=== PATIENT | female | born 1965 | race Caucasian/White ===

== ENCOUNTER → 2018-02-03 | Outpatient (CLI) | payer OTHER | LOC: FIMAGING 11:20 | PROVIDERS: ATTEND Family Medicine | DX: R10.11 Right upper quadrant pain (principal) ==

== ENCOUNTER 2018-06-18 09:46 | Emergency (ER) | payer OTHER ==
[2018-06-18] MEDS ORDERED: ONDANSETRON 4 MG/2 ML VIAL IVP ONE (09:58)
--- NOTE | 2018-06-18 09:58 | EDPHY ---
General Time Seen by Provider: 06/18/18 09:53 Narrative: CHIEF COMPLAINT: Fall, back pain HISTORY OF PRESENT ILLNESS: Patient presents by private vehicle with spouse with complaints of fall and back pain. She states that she was walking out of her house down stairs, when she slipped and hit her back on the steps. She has severe pain in the midthoracic back. It is severe enough that she has difficulty moving and taking a deep breath. Minimal improvement rest. She has no numbness, tingling or weakness. She does have some shaking of her left hand with this. She has no head strike or loss of consciousness. No neck or lumbar back pain. No abdominal or chest pain. No other associated complaints or modifying factors. REVIEW OF SYSTEMS: 10 systems were reviewed and negative with the exception of the elements mentioned in the history of present illness. PAST MEDICAL HISTORY: Denies any medical history PAST SURGICAL HISTORY: No surgical history SOCIAL HISTORY: Nonsmoker. FAMILY HISTORY: Noncontributory EXAMINATION: Vitals: Triage VS reviewed General Appearance: Alert, no distress Head: normocephalic, atraumatic. No Jamison sign. No raccoon eyes. No depression or deformity. Eyes: Pupils equal and round, no conjunctival pallor or injection. EOM symmetric no nystagmus. Neck: Normal inspection, supple, non-tender Respiratory: Lungs are clear to auscultation Cardiovascular: Regular rate and rhythm. No murmur. Good signs of perfusion distally Gastrointestinal: Abdomen is soft and nontender Back: Midline tenderness and swelling the mid thoracic spine with no crepitus or deformity. No lumbar tenderness midline or paraspinous. Neurological: A&O, nonfocal, normal gait. Light sensory symmetric lower extremities. Strength is symmetric lower extremities. Patellar reflexes are 2 + symmetrically. Skin: Warm and dry, no rash. No petechiae, purpura, laceration or puncture. Extremities: Nontender, no pedal edema Psychiatric: Mood and affect normal DIFFERENTIAL DIAGNOSES: Including but not limited to thoracic fracture, sprain, strain, subluxation, spondylolisthesis, spondylosis MDM: 10:00 a.m. Reported mechanical fall just prior to arrival with midthoracic tenderness and mild swelling just left of midline. She is neuro intact distally. She does appear to be in discomfort in very anxious about this, thus I have ordered IV placement for pain control. There is no head strike or loss of conscious. No evidence of acute cord compression or cauda equina. I have ordered plain film of the thoracic spine, her only area of pain. No anticoagulants. No distress. 10:13 a.m. X-ray as read by me, without radiologist, reveals possible compression fracture with spondylolisthesis. Pending Radiology interpretation. 10:50 a.m. I reviewed the x-ray with Dr. Atkinson we agree that CT scan of the thoracic spine without contrast is indicated to further evaluate the injury. Patient is agreeable to this. 11:45 a.m. Notified by radiologist Dr. César Laboy. There is an acute compression fracture at T8. No retropulsion. No fracture of the adjacent vertebrae. 11:55 a.m. Case discussed with neurosurgeon Dr. Moreno. He agrees with our order of a [place] brace. He recommends follow-up in 2-3 weeks in his office. Routine medications as needed. Patient re-evaluated. I discussed the CT imaging, my discussion with Neurosurgery and the forthcoming brace placement. She is in no acute distress. Her pain is tolerable with no neuro complaints. 1:30 p.m. [employer] has arrived and provided her Chiquita brace. She is feeling better in the brace. We discussed discharge home with pain medication, anti- inflammatories and muscle relaxant as needed. We discussed follow up with Neurosurgery in 2-3 weeks. We discussed ED precautions. She is comfortable this plan. Discharged home stable condition. SUPERVISION: Patient was independently examined, but I discussed the case with my secondary supervising physician Dr. Atkinson CONSULTATION: Neurosurgery, Dr. Josh Lawrence prosthetics, Chiquita Brace placement - Diagnostics Imaging Results: Imaging Impressions Thoracic Spine X-Ray 06/18/18 09:59 Impression: Negative for definite acute fracture with degenerative changes noted. Thoracic Spine CT 06/18/18 10:49 Impression: Mild acute compression deformity of T8. There is no associated canal impingement. Results called and discussed with Rufino Recinos PA-C on June 18, 2018 at 1137 hours. - History Smoking Status: Never smoked - Objective Vital Signs: Initial Vital Signs Heart Rate 91 06/18/18 09:49 Respiratory Rate 18 06/18/18 09:49 Blood Pressure 107/74 06/18/18 09:49 O2 Sat (%) 98 06/18/18 09:49 O2 Delivery Mode Room Air Allergies/Adverse Reactions: gluten Allergy (Verified 06/18/18 09:51) latex Allergy (Verified 06/18/18 09:51) Penicillins Allergy (Verified 06/18/18 09:51) Home Medications: Medication Instructions Recorded Cyclobenzaprine [Flexeril 10 MG 10 mg PO TID PRN #20 tab 06/18/18 (*)] oxyCODONE HCL/ACETAMINOPHEN 1 each PO Q4-6PRN PRN #19 tablet 06/18/18 [Percocet 5-325 mg Tablet] Medications Given: Discontinued Medications Cyclobenzaprine HCl (Flexeril) 10 mg PO EDNOW ONE Stop: 06/18/18 11:52 Last Admin: 06/18/18 12:01 Dose: 10 mg Ibuprofen (Motrin) 600 mg PO EDNOW ONE Stop: 06/18/18 12:30 Last Admin: 06/18/18 12:57 Dose: 600 mg Morphine Sulfate (Morphine) 4 mg IVP EDNOW ONE Stop: 06/18/18 09:59 Last Admin: 06/18/18 10:12 Dose: 4 mg Morphine Sulfate (Morphine) 4 mg IVP EDNOW ONE Stop: 06/18/18 10:55 Last Admin: 06/18/18 11:01 Dose: 4 mg Ondansetron HCl (Zofran) 4 mg IVP EDNOW ONE Stop: 06/18/18 09:59 Last Admin: 06/18/18 10:13 Dose: 4 mg Departure - Departure Disposition: Home, Routine, Self-Care Clinical Impression: Thoracic compression fracture Qualifiers: Encounter type: initial encounter Fracture type: closed Qualified Code(s): S22.000A - Wedge compression fracture of unspecified thoracic vertebra, initial encounter for closed fracture Fall Qualifiers: Encounter type: initial encounter Qualified Code(s): W19.XXXA - Unspecified fall, initial encounter Condition: Good Instructions: Thoracolumbar Fracture (ED), Thoracic Pain (ED) Additional Instructions: 1. Fayette brace as discussed and demonstrated by cable television technician 2. Contact neurosurgeon for outpatient follow-up in 2-3 weeks 3. Medications as prescribed as needed for symptom control 4. ED precautions for worsening pain, numbness, tingling, weakness or inability to ambulate Referrals: Tod Moreno MD [Medical Doctor] - As per Instructions Prescriptions: Cyclobenzaprine [Flexeril 10 MG (*)] 10 mg PO TID PRN #20 tab PRN Reason: Spasms oxyCODONE HCL/ACETAMINOPHEN [Percocet 5-325 mg Tablet] 1 each PO Q4-6PRN PRN # 19 tablet PRN Reason: Pain, Breakthrough
[2018-06-18] MEDS ORDERED: CYCLOBENZAPRINE 10 MG TAB PO ONE (11:51)
[2018-06-18] MEDS ORDERED: IBUPROFEN 600 MG TAB PO ONE (12:29)
[2018-06-18 13:43] VITALS: BP 132/69
== END 2018-06-18 13:39 | disposition home or self-care (01) ==
DX: S22.000A Wedge compression fracture of unspecified thoracic vertebra, initial encounter for closed fracture (principal); W10.8XXA Fall (on) (from) other stairs and steps, initial encounter; Y92.018 Other place in single-family (private) house as the place of occurrence of the external cause; Y93.01 Activity, walking, marching and hiking
CPT/HCPCS: 96374; J2270; J2405

== ENCOUNTER → 2018-09-19 | Outpatient (CLI) | payer OTHER | LOC: BMCIMAGING 16:47 | PROVIDERS: ATTEND Family Medicine | DX: M79.642 Pain in left hand (principal) ==

== ENCOUNTER 2018-09-24 01:13 | Emergency (ER) | payer OTHER ==
--- NOTE | 2018-09-24 01:33 | EDPHY ---
H & P Stated Complaint: [facility] fall, LEFT wrist pain swelling. Time Seen by Provider: 09/24/18 01:33 HPI/ROS: HPI CHIEF COMPLAINT: MECHANICAL TRIP AND FALL, LEFT WRIST PAIN. HISTORY OF PRESENT ILLNESS: Patient very pleasant 53-year-old female she presents emergency room with left wrist pain. Patient states that she was going over a gate in her house and fell, landing on her left outstretched hand wrist. She now has distal left wrist pain and swelling. This happened 45 min ago. Denies any focal numbness or tingling. Denies any other areas of injury except left wrist. Past Medical History: Denies significant medical history Past Surgical History: Denies significant surgical history Social History: Denies drugs alcohol tobacco. Family History: Noncontributory ROS REVIEW OF SYSTEMS: 10 Systems were reviewed and negative with the exception of the elements mentioned in the history of present illness. Exam Constitutional triage nursing summary reviewed, vital signs reviewed, awake/ alert. Eyes normal conjunctivae and sclera, EOMI, PERRLA. HENT normal inspection, atraumatic, moist mucus membranes, no epistaxis, neck supple/ no meningismus, no raccoon eyes. Respiratory clear to auscultation bilaterally, normal breath sounds, no respiratory distress, no wheezing. Cardiovascular rate normal, regular rhythm, no murmur, no edema, distal pulses normal. Gastrointestinal soft, non-tender, no rebound, no guarding, normal bowel sounds, no distension, no pulsatile mass. Genitourinary no CVA tenderness. Musculoskeletal left wrist: Swelling noted over the distal radius and distal ulnar, good radial pulse, good cap refill, good financial sales associate strength, able to move all her fingers. Closed injury. Most focally tender over distal radius. no midline vertebral tenderness, full range of motion, no calf swelling, no tenderness of extremities, no meningismus, good pulses, neurovascularly intact. Skin pink, warm, & dry, no rash, skin atraumatic. Neurologic awake, alert and oriented x 3, AAOx3, moves all 4 extremities equally, motor intact, sensory intact, CN II-XII intact, normal cerebellar, normal vision, normal speech. Psychiatric normal mood/affect. Heme/Lymph/Immune no lymphadenopathy. Differential Diagnosis: Includes but is not limited to in a particular order wrist fracture, impacted fracture, ulnar fracture, radius fracture Medical Decision Making: Plan for this patient x-ray left wrist, ice pack, Brewster for pain and re-evaluate. Re-evaluation: X-ray left wrist reviewed. This shows a distal ulnar styloid fracture, additionally there is a distal radius fracture intra-articular. Patient be splinted in a sugar-tong splint. Patient need to follow up with Orthopedics On re-examination of the patient she is in her sugar-tong splint. Comfortable however the end of the splint is went will need to be redone. Additionally the patient states when she went over the case and fell on her outstretched left hand she straddle gait and fell on it. She complains of some right-sided suprapubic pain. I was able to examine her with Cristy HUYNH, as piling cutter. There is no perineal laceration no vaginal external laceration. No hematoma. No evidence of ecchymosis however patient does have some point tenderness over her right-sided suprapubic bone. Plan will be to check urinalysis for blood. Additionally check pelvic x-ray. If these are normal we talked about going home however, also she understands she develops worsening abdominal pain, pelvic pain, fever, vomiting she needs return emergency room she is comfortable this plan. Additionally compartment syndrome discussed about her wrist. Numbness or tingling severe pain, she understands return emergency room. Recommend anti-inflammatory pain medicine, ice, Splint for comfort. She needs follow-up with Orthopedics. Urinalysis reveals no blood. Pelvis x-ray shows no evidence of fracture. The patient has been splinted in a sugar-tong splint a 2nd time as the splint got wet. She is neurovascularly intact at 5:29 a.m.. She has good sensation good cap refill, good radial pulse. Sensation intact. No compartment syndrome. She feels comfortable in her splint. I did discussed return precautions with her she understands return emergency room she develops worsening wrist pain, arm pain, not doing well additionally she understands if she has worsening pelvis pain, abdominal pain, vomiting, not doing well she needs return emergency room. Watch for abdominal pain, blood in her urine, worsening pelvic pain. On exam with Cristy HUYNH as piling cutter there was no evidence of straddle injury or peroneal hematoma or laceration. She had focal tenderness over her right suprapubic bone. The x-ray has been reviewed by myself and I do not appreciate an fracture. Source: Patient - Personal History Current Tetanus/Diphtheria Vaccine: Yes Current Tetanus Diphtheria and Acellular Pertussis (TDAP): Yes - Medical/Surgical History Hx Asthma: No Hx Chronic Respiratory Disease: No Hx Diabetes: No Hx Cardiac Disease: No Hx Renal Disease: No Hx Cirrhosis: No Hx Alcoholism: No Other PMH: Denies - Social History Smoking Status: Never smoked Constitutional: Initial Vital Signs Temperature (C) 36.5 C 09/24/18 01:24 Heart Rate 91 09/24/18 01:24 Respiratory Rate 20 09/24/18 01:24 Blood Pressure 114/88 H 09/24/18 01:24 O2 Sat (%) 97 09/24/18 01:24 O2 Delivery Mode Room Air Allergies/Adverse Reactions: gluten Allergy (Verified 09/24/18 01:23) latex Allergy (Verified 09/24/18 01:23) Penicillins Allergy (Verified 09/24/18 01:23) Home Medications: Medication Instructions Recorded Calcium 09/24/18 Ibuprofen [Motrin (*)] 800 mg PO Q6-8PRN #10 tab 09/24/18 Potassium Citrate 09/24/18 Zinc 09/24/18 oxyCODONE/APAP 5/325 [Percocet 1 - 2 tab PO Q6H PRN #10 tab 09/24/18 5/325 (*)] Medical Decision Making - Data Points Laboratory Results: 09/24/18 04:30 Urine Color YELLOW Urine Appearance CLEAR Urine pH 5.0 (5.0-7.5) Ur Specific [place] 1.029 (1.002-1.030) Urine Protein NEGATIVE (NEGATIVE) Urine Ketones 1+ H (NEGATIVE) Urine Blood NEGATIVE (NEGATIVE) Urine Nitrate NEGATIVE (NEGATIVE) Urine Bilirubin NEGATIVE (NEGATIVE) Urine Urobilinogen NEGATIVE EU EU (0.2-1.0) Ur Leukocyte Esterase NEGATIVE (NEGATIVE) Urine Glucose NEGATIVE (NEGATIVE) Medications Given: Discontinued Medications Acetaminophen (Tylenol) 1,000 mg PO EDNOW ONE Stop: 09/24/18 03:01 Last Admin: 09/24/18 05:54 Dose: Not Given Hydrocodone Bitart/Acetaminophen (Brewster 10/325) 1 tab PO EDNOW ONE Stop: 09/24/18 01:37 Last Admin: 02/17/19 02:31 Dose: Not Given Ibuprofen (Motrin) 800 mg PO EDNOW ONE Stop: 09/24/18 03:01 Last Admin: 09/24/18 03:08 Dose: 800 mg Oxycodone/Acetaminophen (Percocet 5/325) 2 tab PO EDNOW ONE Stop: 09/24/18 01:55 Last Admin: 09/24/18 01:56 Dose: 2 tab Oxycodone/Acetaminophen (Percocet 5/325mg Prepack#4) 1 btl TAKEHOME EDNOW ONE Stop: 09/24/18 03:10 Last Admin: 09/24/18 03:13 Dose: 1 btl Departure - Departure Disposition: Home, Routine, Self-Care Clinical Impression: Wrist fracture Condition: Good Instructions: Wrist Fracture in Adults (ED) Additional Instructions: 1. Follow up with Orthopedics. 2. Anti-inflammatory pain medicine for mild pain 3. Brewster for severe pain 4. Keep your arm elevated 5. Ice. Referrals: Fredrick Keyes MD [Primary Care Provider] - As per Instructions Frank Tinsley MD [Medical Doctor] - As per Instructions Prescriptions: Ibuprofen [Motrin (*)] 800 mg PO Q6-8PRN #10 tab oxyCODONE/APAP 5/325 [Percocet 5/325 (*)] 1 - 2 tab PO Q6H PRN #10 tab PRN Reason: Pain, Severe
[2018-09-24] MEDS ORDERED: HYDROCODONE/APAP 10/325 TAB PO ONE (01:36)
[2018-09-24] MEDS ORDERED: OXYCODONE/APAP 5/325 TAB PO ONE (01:54)
[2018-09-24] MEDS ORDERED: OXYCODONE/APAP 5/325 TAB ONE (01:55)
[2018-09-24] MEDS ORDERED: ACETAMINOPHEN 500 MG TAB PO ONE (03:00)
[2018-09-24] MEDS ORDERED: IBUPROFEN 800 MG TAB PO ONE (03:00)
[2018-09-24] MEDS ORDERED: OXYCODONE/APAP 5/325MG PREPACK#4 BTL TAKEHOME ONE ×2 (03:05→03:09)
[2018-09-24 06:16] VITALS: BP 132/64
--- NOTE | 2018-09-24 11:54 | ASMTCAGE ---
CAGE Additional Comments SBIRT inaccurately documented (it said pt could not participate but all the answers were 'No'; per ED MD Report, pt was AxOx4 in the ED. No CAGE indicated and pt discharged before it could be completed anyway Date Signed: 09/24/2018 11:53 AM Electronically Signed By:Karina Hanson RN
== END 2018-09-24 06:15 | disposition home or self-care (01) ==
PROC: 2W3FX1Z Immobilization of Left Hand using Splint (ICD-10-PCS; principal; 2018-09-24)
DX: S52.572A Other intraarticular fracture of lower end of left radius, initial encounter for closed fracture (principal); S52.612A Displaced fracture of left ulna styloid process, initial encounter for closed fracture; W01.0XXA Fall on same level from slipping, tripping and stumbling without subsequent striking against object, initial encounter; Y92.009 Unspecified place in unspecified non-institutional (private) residence as the place of occurrence of the external cause; Y99.9 Unspecified external cause status; Y93.9 Activity, unspecified
CPT/HCPCS: A4565